=== PATIENT | female | born 1935 | race Caucasian/White ===

== ENCOUNTER 2016-05-24 07:19 | Observation (INO) | payer MEDICARE, MEDICAID ==
--- NOTE | 2016-05-22 20:52 | HP ---
PREOPERATIVE HISTORY AND PHYSICAL: DATE OF ADMISSION: 05/24/16 Patient is scheduled for same-day surgery with overnight extension for observation by Dr. Hallman on 05/24/16. DATE OF PREOPERATIVE HISTORY AND PHYSICAL EXAMINATION: 05/22/16. ATTENDING SURGEON: Dr. Yaima Hallman (dictated by Nikunj Cartagena NP). CHIEF COMPLAINT: Right breast cancer. HISTORY OF PRESENT ILLNESS: The patient is a 81-year-old female who noticed a lump in her right breast in late February or early March. She waited a couple of weeks and then saw Dr. Nieves and was referred to Dr. Garrett, who did fine needle aspiration of this right breast mass on 04/18/16. 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 She had a mammogram on 05/10/16 and there was a spiculated 1.5-cm mass corresponding to the palpable lesion in the upper inner quadrant of the right breast. She denies any breast pain or nipple discharge; she had her first menstrual period at age 17; she went through menopause at age 52; she is 5, para 5, and had her first child at age 20. She took control pills for more than 10 years and no other hormone replacement therapy. She has never had radiation to the chest for Hodgkin's lymphoma; she has never had a previous breast biopsy; she denies any family history of ovarian cancer. Her daughter in 2010 with breast cancer. She was diagnosed at age 43 [address] at age [address] Hallman has reviewed the above findings with the patient and has examined the patient and has discussed surgical treatment options with the patient and she has opted for right mastectomy with sentinel lymph node biopsy. Dr. Hallman discussed the nature of the surgical procedure, the relevant risks , benefits, and alternatives and today, I reviewed the typical overnight hospitalization, the use of a Raffi-Crenshaw drain, and the expected postoperative care and recovery. The patient has had a chance to ask questions and stated that she understands the information and is satisfied with the answers given to her questions. She will sign surgical consent on the day of surgery. 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 She has a history of plantar fasciitis, kidney stones, benign positional vertigo, status post tobacco use, osteoarthritis. MEDICATIONS: 1. Multivitamin daily. 2. Vitamin D3 1000 International Units daily. 3. Flaxseed oil supplement 1000 mg daily. 4. Fish oil supplement daily. ALLERGIES: No known drug allergies. No latex or food allergies. FAMILY HISTORY: Parents in their 90s without malignancies. Daughter in her late 40s or early 50s with breast cancer. No known anesthesia complications, bleeding tendencies, or clotting disorders in the family. SOCIAL HISTORY: She is . A friend named Delroy accompanied her to the appointment today. 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 She quit smoking in 1986 after smoking 1 pack per day for 25 years. REVIEW OF SYSTEMS: She denies any recent constitutional symptoms, her weight has been stable, her energy level has been good, she has a good appetite. She denies any fevers, sweats, chills, cough, or sore throat. She denies any history of coronary artery disease. She denies any shortness of breath, chest pain, or palpitations. She denies any history of deep vein thrombosis or pulmonary embolism. She denies any gastrointestinal complaints; she denies any change in bowel habits. She denies any previous anesthesia complications. She denies any bleeding tendencies and has never received a blood transfusion. She is status post transurethral resection of bladder tumor for urothelial carcinoma , noninvasive, in May 2015; she sees Dr. Cervantes routinely and states that she has had 2 subsequent negative cystoscopies in the office and no further hematuria. She denies any significant musculoskeletal complaints and denies any neurologic conditions or complaints. PHYSICAL EXAMINATION GENERAL SURVEY: The patient is a 81-year-old female who looks younger than her stated age, well developed, well nourished, in no acute distress. VITAL SIGNS: Height 67 inches, weight 134 pounds, body mass index 21, blood pressure 102/68, pulse 78 and regular, respiratory rate 16, temperature 98 tympanic. HEENT: Benign. NECK: Supple. No cervical lymphadenopathy. Thyroid gland feels mildly enlarged, but there are no palpable nodules. BACK: No CVA tenderness. LUNGS: Breath sounds bilaterally clear and equal. BREASTS: Right breast with palpable 1.5-cm mass at the 3 o'clock position, mobile. No overlying skin changes. No nipple discharge or other palpable masses in the right breast. Left breast is without discrete masses, nontender. No nipple discharge. Both nipples are everted. No axillary lymphadenopathy. No supraclavicular lymphadenopathy bilaterally. HEART: Regular rate and rhythm without murmurs or rubs. ABDOMEN: Active bowel sounds. Soft and nontender throughout without masses or organomegaly. EXTREMITIES: Warm without edema or skin ulcerations. NEUROLOGIC: Exam without focal deficits. Alert and oriented x3. Steady gait. SKIN: Warm, dry, intact. IMPRESSION: Right breast cancer. PLAN: Same-day surgery admission with overnight extension for observation on 05/24/16, to Dr. Hallman's service for right mastectomy and sentinel lymph node biopsy. NIKUNJ CARTAGENA NP CC: Dr. Hallman, [facility]; Dr. Nieves* [id number]/CPS #: [id number] [facility]
[~2016-05-24 07:19] MED LIST: Buffered Lidocaine 1% SYRIN* 3 ML/SYR SYRINGE INTRADERM ONE; Famotidine IV* 10 MG/ML 2 ML (20 mg) IV ONE; Famotidine IV* 10 MG/ML 2 ML (20 mg) ONE; Lidocaine 2.5%/Prilocain 2.5%* 5 GM TUBE ONE; Morphine INJ* 2 MG/ML 1 ML SYRINGE IV PRN; PROCHLORPERAZINE INJ 5 MG/ML 2 ML VIAL IV PRN; ceFAZolin 2 GM PREMIX(*) 2 GM/50 ML BAG IVPB ONE; oxyCODONE/Acetamin 5/325 MG* TAB PO PRN
--- NOTE | 2016-05-24 10:08 | RAD ---
INDICATION: Right breast carcinoma, sentinel node localization. Comparison: Comparison is made with prior mammograms from May 10, 2016. Technique: The benefits and risks of the procedure were explained to the patient. The patient consented to the exam. A timeout was performed before beginning the procedure. 0.32 mCi of technetium 99m filtered sulfur colloid were injected in a nery-areolar location. Four intradermal injections were made. The patient tolerated the procedure well without incident. Multiple images of the chest and right axilla were obtained in the frontal, oblique and lateral projections. FINDINGS: There was a single sentinel node present in the right axilla. This was marked and localized on the patient's skin. IMPRESSION: THERE IS A SINGLE SENTINEL NODE LOCALIZED WITHIN THE RIGHT AXILLA.
[2016-05-24] MEDS ORDERED: fentaNYL* 50 MCG/ML 2 ML VIAL (100 MCG VIAL) ONE ×2 (11:44→14:08)
[2016-05-24] MEDS ORDERED: KETAMINE HCL* 50 MG/ML 10 ML VIAL ONE (11:44)
[2016-05-24] MEDS ORDERED: Bupivacaine 0.25% SDV* 30 ML ONE (12:25)
[2016-05-24] MEDS ORDERED: Methylene Blue 1%* 10 ML VIAL ONE (12:25)
[2016-05-24] MEDS ORDERED: Propofol* 10 MG/ML 20 ML BTL IV PUSH ONE (13:17)
[2016-05-24] MEDS ORDERED: Ketorolac INJ* 30 MG/ML 1 ML VIAL ONE (13:17)
[2016-05-24] MEDS ORDERED: Dexamethasone IV* 4 MG/ML 1 ML (4 MG) ONE (13:17)
[2016-05-24] MEDS ORDERED: Ondansetron INJ* 2 MG/ML VIAL ONE (13:17)
[2016-05-24] MEDS ORDERED: Lidocaine 2% PF* 5 ML VIAL ONE (13:17)
[2016-05-24] MEDS ORDERED: Morphine INJ* 10 MG/ML 1 ML SYRINGE ONE ×2 (13:17→14:07)
[2016-05-24] MEDS ORDERED: EPHEDrine (Pressors)* 50 MG/ML VIAL ONE (13:32)
[2016-05-24] MEDS ORDERED: Glycopyrrolate IV* 0.2 MG/ML 1 ML VIAL ONE (13:32)
[2016-05-24] MEDS ORDERED: Acetaminophen TAB* 325 MG PO PRN (14:01)
[2016-05-24] MEDS ORDERED: HYDROmorphone* 1 MG/ML 1 ML SYR IV PRN (14:01)
[2016-05-24] MEDS ORDERED: Ondansetron INJ* 2 MG/ML VIAL IV PRN (14:01)
[2016-05-24] MEDS: fentaNYL* 50 MCG/ML 2 ML VIAL (100 MCG VIAL) IV PRN ×2 (14:08→14:20)
[2016-05-24] MEDS ORDERED: [UNRECOGNIZED DRUG - OTHER] BOTH EYES PRN (14:09)
[2016-05-24] MEDS ORDERED: PROCHLORPERAZINE INJ 5 MG/ML 2 ML VIAL ONE (14:47)
[2016-05-24] MEDS: oxyCODONE/Acetamin 5/325 MG* TAB PO PRN (19:17)
[2016-05-24] MEDS: Heparin VIAL(*) 5000 UNITS/ML VIAL (FIVE THOUSAND) SUBCUT SCH (21:34)
--- NOTE | 2016-05-25 04:12 | OP ---
CC: [facility]; [facility]; Sienna Nieves MD OPERATIVE REPORT: DATE OF OPERATION: 05/24/16 DATE OF : 39 SURGEON: Yaima Hallman MD DIE REPAIRER TRIMMER DIES: DOLORES Smith PRE-OP DIAGNOSIS: Right breast cancer. POST-OP DIAGNOSIS: Right breast cancer. OPERATIVE PROCEDURE: Right mastectomy and sentinel lymph node biopsy. INDICATIONS: Ms. Ferguson is a 81-year-old woman who presented to the office with a diagnosis of breast cancer prompting a plan for surgical intervention. She had, after discussion, decided for mastectom y and was prepared for surgery. On the morning of surgery, she underwent sentinel lymph node locali zation without difficulty. DESCRIPTION OF PROCEDURE: She was then brought to the operating room, placed on the OR table in sup ine position, and given general anesthesia. Right breast and axilla were prepped and draped in the usual sterile fashion. First step was to do the mastectomy. Here a curvilinear incision was made i n the superior breast and subcutaneous tissue was divided with electrocautery to create flaps medial ly to the sternum, superiorly to the clavicle and laterally to the latissimus dorsi muscle. Then an inferior incision was made and this encompassed the nipple areolar complex. Dissection was accomplis hed with electrocautery to create flaps medially to the sternum, inferiorly to the rectus muscle, an d laterally to the latissimus dorsi muscle. Once this was completed, the breast was elevated off th e chest wall using electrocautery. Once it was out of the chest, it was handed off as a specimen wi th the usual markings. Hemostasis was assured with electrocautery and once this was adequate, atten tion was turned to finding the axillary sentinel node. Almost immediately apparent was node that wa s radioactive. Its in situ counts were around 1260. It was removed using blunt and sharp dissectio n and clips to control small lymphatic and blood vessels that approached. The ex vivo counts were 1 200 and the remaining axillary bed counts were 8. At this point, closure was accomplished. It shou ld be mentioned that prior to removing the breast entirely from the chest wall, its approximate edilson esponding location on the chest wall was marked with clips. The wound was irrigated with saline. On ce it was ascertain that the hemostasis was adequate, closure was accomplished. This was done with 2-0 Polysorb in the subcutaneous layer as well as 3-0 Polysorb in the subcutaneous layer and the ski n was closed with 4-0 Polysorb in a subcuticular fashion. Prior to closing, a ESTEPHANIA drain was inserted through a stab wound in the anterior axillary line inferiorly. This was secured to the chest wall w ith 3-0 Surgipro. Once the incision was completely closed, Steri-Strips and a dry fluffy dressing w ere applied. All sponge and instrument counts were correct. The patient tolerated the procedure we ll and was transferred to recovery in a stable condition. Prior to placing the final dressing, loca l anesthetic was instilled into the wound through the ESTEPHANIA drain. The patient tolerated the procedure well and was transferred to Recovery in stable condition. [id number]/[facility] #: [id number]
[2016-05-25] MEDS: oxyCODONE/Acetamin 5/325 MG* TAB PO PRN (06:36)
[2016-05-25 07:48] VITALS: BP 103/55
--- NOTE | 2016-05-25 08:28 | PN ---
Progress Note - Progress Note Note: Surgery Ms. Ferguson has some pain in the right axilla that started this morning after she got up. Before that she had not had pain through the night. Vital Signs 05/24/16 05/24/16 05/24/16 14:05 14:08 14:10 Temperature 97.2 F Pulse Rate 93 97 Respiratory 18 12 14 Rate Blood Pressure 135/85 133/76 (mmHg) O2 Sat by Pulse 100 99 Oximetry 05/24/16 05/24/16 05/24/16 14:15 14:20 14:30 Temperature Pulse Rate 93 76 Respiratory 14 18 18 Rate Blood Pressure 124/75 127/93 (mmHg) O2 Sat by Pulse 96 98 Oximetry 05/24/16 05/24/16 05/24/16 14:45 15:00 16:00 Temperature 97.5 F 97.4 F Pulse Rate 75 79 71 Respiratory 12 18 16 Rate Blood Pressure 124/62 117/65 114/57 (mmHg) O2 Sat by Pulse 97 97 98 Oximetry 05/24/16 05/24/16 05/24/16 16:49 17:52 19:17 Temperature 97.4 F 97.4 F Pulse Rate 62 73 Respiratory 12 16 18 Rate Blood Pressure 107/56 110/64 (mmHg) O2 Sat by Pulse 100 100 Oximetry 05/24/16 05/24/16 05/24/16 19:37 21:17 21:39 Temperature 97.4 F Pulse Rate 75 Respiratory 18 16 18 Rate Blood Pressure 99/57 (mmHg) O2 Sat by Pulse 93 Oximetry 05/24/16 05/25/16 05/25/16 23:32 03:17 06:36 Temperature 97.6 F 97.6 F Pulse Rate 83 81 Respiratory 16 16 18 Rate Blood Pressure 97/55 93/52 (mmHg) O2 Sat by Pulse 96 96 Oximetry 05/25/16 07:35 Temperature 97.4 F Pulse Rate 72 Respiratory 18 Rate Blood Pressure 103/55 (mmHg) O2 Sat by Pulse 95 Oximetry Mastectomy site: clean and dry; flaps viable, though the lateral superior flap has subtle discoloration over an ~2cm area. ESTEPHANIA: serosanguinous drainage. Intake & Output 05/24/16 05/25/16 05/25/16 22:59 06:59 14:59 Intake Total 850 994 Output Total 420 765 Balance 430 229 Intake: IV Fluids 994 LR 994 Oral 850 Output: ESTEPHANIA #1 70 15 Urine 300 750 Estimated Blood Loss 50 Other: # Bowel Movements 0 A/P: POD#1 s/p right mastectomy and SLN bx. Doing well. Can go home and f/u as outpt. CLFoster
[2016-05-25] MEDS: Heparin VIAL(*) 5000 UNITS/ML VIAL (FIVE THOUSAND) SUBCUT SCH (08:52)
--- NOTE | 2016-05-26 05:16 | DS ---
DISCHARGE SUMMARY: DATE OF ADMISSION: 05/24/16 DATE OF DISCHARGE: 05/25/16 ADMISSION DIAGNOSIS: Breast cancer. DISCHARGE DIAGNOSIS: Breast cancer. PROCEDURES DURING HOSPITALIZATION: Include right mastectomy and sentinel lymph node biopsy done on the date of surgery. HOSPITAL COURSE: Please see admission history and physical for details and findings at the time of admission. She was admitted for postoperative management of her mastectomy including pain and nausea management and overnight recovered fairly well. She had a little bit of pain in the morning but this was managed easily with the dressing change and she was considered stable for discharge to home. She was discharged to home with instructions to follow up as an outpatient. [id number]/CPS #: [id number] MTDD
== END 2016-05-25 09:50 | disposition home or self-care (01) ==
LOC: SDS 07:19 → SSU 15:33
PROVIDERS: ADMIT Surgery; ATTEND Surgery
PROC: 07B50ZX Excision of Right Axillary Lymphatic, Open Approach, Diagnostic (ICD-10-PCS; 2016-05-24)
PROC: 0HTT0ZZ Resection of Right Breast, Open Approach (ICD-10-PCS; principal; 2016-05-24 12:15)
DX: C50.911 Malignant neoplasm of unspecified site of right female breast (principal); Z85.51 Personal history of malignant neoplasm of bladder; Z87.891 Personal history of nicotine dependence
CPT/HCPCS: 78195; 88307; 88341; 88342; 96372; 96374; 96375; A9270-GY; A9541; G0378; J0690; J0780; J1100; J1644; J1885; J2270; J2405; J2704; J3010

== ENCOUNTER 2016-07-27 12:42 | Emergency (ER) | payer MEDICARE, MEDICAID ==
[2016-07-27] MEDS ORDERED: DOXYcycline CAP(*) 100 MG PO ONE (14:13)
--- NOTE | 2016-07-27 14:13 | UC ---
Skin Complaint HPI - HPI Summary HPI Summary: tick removed a few hours ago on right elbow may have been attached for greater than 36 hours - History of Current Complaint Chief Complaint: UCSkin Time Seen by Provider: 07/27/16 14:10 Stated Complaint: TICK BITE Hx Obtained From: Patient ?: No Onset/Duration: Sudden Onset Skin Exposure Onset/Duration: Days Ago Timing: Constant Onset Severity: Mild Current Severity: Mild Pain Intensity: 2 Pain Scale Used: 0-10 Numeric Location: Discrete - right elbow Aggravating: Nothing Alleviating: Nothing Associated Signs & Symptoms: Positive: Negative Related History: Insect Bite/Sting - Allergy/Home Medications Allergies/Adverse Reactions: Allergies Allergy/AdvReac Type Severity Reaction Status Date / Time Midazolam [From Versed] Allergy Intermediate Dizziness Verified 07/27/16 14:12 Review of Systems Constitutional: Negative Skin: Other - tick attachement right elbow Eyes: Negative ENT: Negative Respiratory: Negative Cardiovascular: Negative Gastrointestinal: Negative Genitourinary: Negative Motor: Negative Neurovascular: Negative Musculoskeletal: Negative Neurological: Negative Psychological: Negative All Other Systems Reviewed And Are Negative: Yes PMH/Surg Hx/FS Hx/Imm Hx Previously Healthy: No Endocrine History Of: Denies: Diabetes, Thyroid Disease Cardiovascular History Of: Denies: Cardiac Disorders, Hypertension Respiratory History Of: Denies: COPD, Asthma GI/ History Of: Reports: Kidney Stones - X 1 IN THE 1970'S- NONE SINCE Denies: Ulcer Neurological History Of: Reports: Migraine - during menopause Cancer History Of: Reports: Breast Cancer - RIGHT, 2017 - Surgical History Surgical History: Yes Surgery Procedure, Year, and Place: COLONOSCOPY X 2. IVP. SPINAL WTH CHILDBIRTH-HAD A SPINAL HEADACHE. Right breast mastectomy - Family History Known Family History: Positive: None Family History: no reported cardiovascular issues in family lineage - Social History Alcohol Use: None Substance Use Type: None Smoking Status (MU): Former Smoker Type: Cigarettes Amount Used/How Often: < 1PPD X 30 YEARS Have You Smoked in the Last Year: No When Did the Patient Quit Smoking/Using Tobacco: 1985 - Immunization History Most Recent Influenza Vaccination: 2012 Most Recent Tetanus Shot: 2008 Most Recent Pneumonia Vaccination: 2012 Physical Exam Triage Information Reviewed: Yes Appearance: Well-Appearing, No Pain Distress, Well-Nourished Vital Signs Reviewed: Yes Eye Exam: Normal Eyes: Positive: Conjunctiva Clear ENT Exam: Normal ENT: Positive: Normal ENT inspection, Hearing grossly normal. Negative: Nasal congestion, Nasal drainage, Trismus, Muffled/hoarse voice Dental Exam: Normal Neck exam: Normal Neck: Positive: Supple, Nontender, No Lymphadenopathy Respiratory Exam: Normal Respiratory: Positive: Chest non-tender, No respiratory distress, No accessory muscle use Cardiovascular Exam: Normal Cardiovascular: Positive: RRR, Pulses Normal, Brisk Capillary Refill Musculoskeletal Exam: Normal Musculoskeletal: Positive: Strength Intact, ROM Intact, No Edema Neurological Exam: Normal Neurological: Positive: Alert, Muscle Tone Normal Psychological Exam: Normal Psychological: Positive: Normal Response To Family, Age Appropriate Behavior Skin Exam: Other Skin: Positive: Other - small irratated area on right elbow at site of tick bite Course/Dx - Course Course Of Treatment: soap and water wash / doxy. 200 mg times 1 follow with pcp - Differential Diagnoses - Skin Complaint Differential Diagnoses: Cellulitis, Impetigo, Systemic Illness, Tick Born Illness - Diagnoses Provider Diagnoses: Tick exposure with PEP for Lyme Discharge - Discharge Plan Condition: Stable Disposition: HOME Patient Education Materials: Doxycycline (By mouth), Tick Bite (ED) Referrals: Sienna Nieves MD [Primary Care Provider] - If Needed
[2016-07-27 14:15] VITALS: BP 128/76
== END 2016-07-27 14:24 | disposition home or self-care (01) ==
LOC: UCEAST 12:42
DX: S50.361A Insect bite (nonvenomous) of right elbow, initial encounter (principal); W57.XXXA Bitten or stung by nonvenomous insect and other nonvenomous arthropods, initial encounter; G43.909 Migraine, unspecified, not intractable, without status migrainosus; Z87.442 Personal history of urinary calculi; Z85.3 Personal history of malignant neoplasm of breast; Z90.11 Acquired absence of right breast and nipple; Z87.891 Personal history of nicotine dependence
CPT/HCPCS: 99212; A9270-GY; G0463

== ENCOUNTER 2016-09-23 22:02 | Emergency (ER) | payer MEDICARE, MEDICAID ==
[2016-09-24 00:13] VITALS: BP 143/83
[2016-09-24] MEDS ORDERED: Tobramycin 0.3% OPHTH.SOL* 5 ML BOT (regular eye drops) LEFT EYE ONE (00:42)
--- NOTE | 2016-10-08 15:11 | ED ---
Throat Pain/Nasal Congestion - HPI Summary HPI Summary: Patient presents to ED with CC of left eye redness and pain x 2 days. She notes to a small yellow dot in the center. That area is not painful. She is only having pain behind the eye. Denies blurry vision, double vision, pressure or burning. Denies other symptoms at this time. She has not been sick recently. - History of Current Complaint Chief Complaint: EDEyeProblem Time Seen by Provider: 09/24/16 00:23 Hx Obtained From: Patient Onset/Duration: Sudden Onset, Lasting Minutes - Epiglottits Risk Factors Epiglottis Risk Factors: Negative - Allergies/Home Medications Allergies/Adverse Reactions: Allergies Allergy/AdvReac Type Severity Reaction Status Date / Time Midazolam [From Versed] Allergy Intermediate Dizziness Verified 09/23/16 22:21 PMH/Surg Hx/FS Hx/Imm Hx Previously Healthy: Yes Endocrine/Hematology History: Denies: Hx Diabetes, Hx Thyroid Disease Cardiovascular History: Denies: Hx Hypertension Respiratory History: Denies: Hx Asthma, Hx Chronic Obstructive Pulmonary Disease (COPD) GI History: Reports: Hx Irritable Bowel - ??, Other GI Disorders - "INFECTIOUS COLITIS"-FALL 2013-NO PROBLEMS SINCE Denies: Hx Ulcer History: Reports: Hx Kidney Stones - X 1 IN THE 1969'S- NONE SINCE, Other Problems/Disorders - TURBT 05/30 Dr. Cervantes Musculoskeletal History: Reports: Hx Arthritis - osteoarthritis Sensory History: Reports: Hx Contacts or Glasses - glasses-READING Denies: Hx Hearing Aid Opthamlomology History: Reports: Hx Contacts or Glasses - glasses-READING Neurological History: Reports: Hx Migraine - during menopause, Other Neuro Impairments/Disorders - HEADACHES MOST EVERY MORNING- RELIEVED WHEN GETS OUT OF BED - Cancer History Cancer Type, Location and Year: Breast CA Hx Chemotherapy: No Hx Radiation Therapy: No - Surgical History Surgery Procedure, Year, and Place: COLONOSCOPY X 2. IVP. SPINAL WTH CHILDBIRTH-HAD A SPINAL HEADACHE. Right breast mastectomy Hx Anesthesia Reactions: Yes - SPINAL HEADACHE AFTER CHILD - Immunization History Hx Pertussis Vaccination: No Immunizations Up to Date: Unable to Obtain/Confirm Infectious Disease History: No Infectious Disease History: Denies: Hx Hepatitis, Hx Human Immunodeficiency Virus (HIV), History Other Infectious Disease, Traveled Outside the [place] in Last 30 Days - Family History Known Family History: Positive: None Family History: no reported cardiovascular issues in family lineage - Social History Occupation: Unemployed Lives: With Family Alcohol Use: None Hx Substance Use: No Substance Use Type: Reports: None Smoking Status (MU): Former Smoker Type: Cigarettes Amount Used/How Often: < 1PPD X 30 YEARS Have You Smoked in the Last Year: No Review of Systems Constitutional: Negative Positive: Erythema, Other - slight pain ENT: Negative Positive: Palpitations Gastrointestinal: Negative Positive: no symptoms reported, see HPI Musculoskeletal: Negative Neurological: Negative Psychological: Normal All Other Systems Reviewed And Are Negative: Yes Physical Exam Triage Information Reviewed: Yes Vital Signs On Initial Exam: Initial Vitals Temp Pulse Resp BP Pulse Ox 98.1 F 70 16 127/68 97 09/23/16 22:21 09/23/16 22:21 09/23/16 22:21 09/23/16 22:21 09/23/16 22:21 Vital Signs Reviewed: Yes Appearance: Positive: Well-Appearing, Well-Nourished Skin: Positive: Warm, Skin Color Reflects Adequate Perfusion Head/Face: Positive: Normal Head/Face Inspection Eyes: Positive: EOMI, ROSALINA, Conjunctiva Clear, Other: - small yellow area at 9oclock Neck: Positive: Supple, No Lymphadenopathy Respiratory/Lung Sounds: Positive: Clear to Auscultation, Breath Sounds Present Cardiovascular: Positive: Normal, RRR Musculoskeletal: Positive: Strength/ROM Intact Neurological: Positive: Speech Normal Psychiatric: Positive: Normal - [place] Coma Scale Coma Scale Total: 15 Diagnostics - Vital Signs Vital Signs Temp Pulse Resp BP Pulse Ox 09/24/16 00:13 98.1 F 75 16 143/83 96 09/23/16 22:21 98.1 F 70 16 127/68 97 - Laboratory Lab Statement: Any lab studies that have been ordered have been reviewed, and results considered in the medical decision making process. EENT Course/Dx - Course Course Of Treatment: small yellow area at 9oclock resembling pinguecula. patient has close follow up with eye doctor and will follow up. unable to give steroids and antibiotics are not warranted d/t no coexisting infection. Return precautions given. Patient understands and agrees with plan. Ok for discharge. - Differential Diagnoses Differential Diagnoses: Abrasion, Other - pterygium, FB - Diagnoses Provider Diagnoses: Pinguecula of left eye Discharge - Discharge Plan Condition: Stable Disposition: HOME Patient Education Materials: Pinguecula (ED) Referrals: Sienna Nieves MD [Primary Care Provider] - Additional Instructions: Follow up with eye MD. I think you have a pinguecula - these are benign and go away on their own. I have given you antibiotic drops if you have a co-existing conjunctivitis. Instill 1 to 2 drops into affected eye(s) every 6 hours for mild to moderate infections for 3 days Images - Images Eyes: 1 - small yellow area resembling pinguecula
== END 2016-09-24 00:51 | disposition home or self-care (01) ==
LOC: ED 22:02
DX: H11.152 Pinguecula, left eye (principal); Z87.442 Personal history of urinary calculi; Z85.3 Personal history of malignant neoplasm of breast; Z87.891 Personal history of nicotine dependence
CPT/HCPCS: 99282; A9270-GY

== ENCOUNTER 2017-07-30 07:53 | Emergency (ER) | payer MEDICARE, MEDICAID ==
[2017-07-30 08:04] VITALS: BP 117/68
--- NOTE | 2017-07-30 11:23 | UC ---
Soha Tidwell Gabriel, scribed for Jose Daniel Linder MD on 07/30/17 at 0819 . Bite Injury/Animal HPI - HPI Summary HPI Summary: This patient is a 82 year old F presenting to [facility] s/p tick bite. Pt found a tick on her waist line and attempted to remove it completely and would like it to be removed. Pt has a history of lyme disease and took 200mg of doxycycline this morning. I removed what was left on the tick from the left flank. Pt has no other complaints at this time. - History of Current Complaint Chief Complaint: UCSkin Stated Complaint: TICK BITE Time Seen by Provider: 07/30/17 07:56 Hx Obtained From: Patient Severity Currently: None Severity Initially: Mild Pain Intensity: 0 Pain Scale Used: 0-10 Numeric Onset/Duration: Still Present Type of Bite: Wild Animal Has Animal Been Immunized?: N/A Character: Puncture Associated Signs And Symptoms: Positive: Negative - fever Hx of Bite: Unprovoked - Allergies/Home Medications Allergies/Adverse Reactions: Allergies Allergy/AdvReac Type Severity Reaction Status Date / Time midazolam [From Versed] Allergy Dizziness Verified 07/30/17 08:04 PMH/Surg Hx/FS Hx/Imm Hx - Additional Past Medical History Additional PMH: lyme disease Cancer History: Breast Cancer - Surgical History Surgical History: Yes Surgery Procedure, Year, and Place: COLONOSCOPY X 2. IVP. SPINAL WTH [facility]ILDBIR[facility]-HAD A SPINAL HEADACHE. Right breast mastectomy - Family History Known Family History: Positive: None Negative: Cardiac Disease, Hypertension Family History: no reported cardiovascular issues in family lineage - Social History Alcohol Use: None Substance Use Type: None Smoking Status (MU): Former Smoker Type: Cigarettes Amount Used/How Often: < 1PPD X 30 YEARS Have You Smoked in the Last Year: No When Did the Patient Quit Smoking/Using Tobacco: 1985 - Immunization History Most Recent Influenza Vaccination: 2012 Most Recent Tetanus Shot: 2008 Most Recent Pneumonia Vaccination: 2012 Review of Systems Constitutional: Negative - fever Skin: Other - tick bite All Other Systems Reviewed And Are Negative: Yes Physical Exam - Summary Physical Exam Summary: VITAL SIGNS: Reviewed. GENERAL: Patient is a well-developed and nourished female who is lying comfortable in the stretcher. Patient is not in any acute respiratory distress. HEAD AND FACE: Normocephalic EYES: PERRLA, EOMI x 2. EARS: Hearing grossly intact. MOUTH: Oropharynx within normal limits. NECK: Supple, trachea is midline, no adenopathy, no JVD, no carotid bruit. CHEST: Symmetric, no tenderness at palpation LUNGS: Clear to auscultation bilaterally. No wheezing or crackles. CVS: Regular rate and rhythm, S1 and S2 present, no murmurs or gallops appreciated. ABDOMEN: Soft, non-tender. Bowel sounds are normal. No abdominal abnormal pulsations. EXTREMITIES: Full ROM in all major joints, no edema, no cyanosis or clubbing. NEURO: Alert and oriented x 3. No acute neurological deficits. Speech is normal and follows commands. SKIN: Dry and warm Triage Information Reviewed: Yes Vital Signs: Initial Vital Signs Temp 98.1 F 07/30/17 07:57 Pulse 85 07/30/17 07:57 Resp 18 07/30/17 07:57 BP 117/68 07/30/17 07:57 Pulse Ox 100 07/30/17 07:57 Vital Signs Reviewed: Yes Bite Injury Course/Dx - Course Course Of Treatment: I discussed all the findings with the patient. Patient was instructed to return to the urgent care or go to ER immediately if any of the symptoms return or worsens. Plan of care was discussed with the patient, and patient understands and agrees. All questions were answered to patient satisfaction. There were no further complaints or concerns. - Differential Dx/Diagnosis Provider Diagnoses: tick bite Discharge - Sign-Out/Discharge Documenting (check all that apply): Discharge/Admit/Transfer - Discharge Plan Condition: Stable Disposition: HOME Patient Education Materials: Tick Bite (ED) Referrals: Sienna Nieves MD [Primary Care Provider] - The documentation as recorded by the Soha walsh Gabriel accurately reflects the service I personally performed and the decisions made by me, Jose Daniel Linder MD.
== END 2017-07-30 08:22 | disposition home or self-care (01) ==
LOC: UCEAST 07:53
DX: S30.861A Insect bite (nonvenomous) of abdominal wall, initial encounter (principal); W57.XXXA Bitten or stung by nonvenomous insect and other nonvenomous arthropods, initial encounter; Y93.9 Activity, unspecified; Y92.9 Unspecified place or not applicable; Z85.3 Personal history of malignant neoplasm of breast; Z88.4 Allergy status to anesthetic agent; Z87.891 Personal history of nicotine dependence
CPT/HCPCS: 99211; G0463

== ENCOUNTER 2019-01-05 07:30 | Inpatient (IN) | payer MEDICARE, MEDICAID ==
--- NOTE | 2019-04-28 13:51 | HP ---
PREOPERATIVE HISTORY AND PHYSICAL: DATE OF ADMISSION/SURGERY: 05/11/19 DATE OF OFFICE VISIT: 04/28/19 ATTENDING SURGEON: Dr. Denis.* (DICTATED BY DOLORES GARZA) PROCEDURE: Left total hip replacement. CHIEF COMPLAINT: Left hip pain. HISTORY OF PRESENT ILLNESS: Ms. 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 She continued to have groin pain with activity especially with stairs and she has failed conservative measures and therefore elected to proceed with a left total hip replacement with Dr. Denis on 05/11/19. PAST MEDICAL HISTORY: Benign paroxysmal positional vertigo; breast cancer, treated with right mastectomy; bladder tumors, that were removed; and Lyme disease in 2017. PAST SURGICAL HISTORY: Right mastectomy, cystoscopies, transurethral resection of the bladder tumor in 2016, surgery for infectious colitis. The patient denies prior complication of anesthesia. MEDICATIONS: 1. Multivitamin 1 tab daily. 2. Flaxseed oil 1000 mg 1 daily. 3. Aleve 220 one tab 3 times a day as needed. ALLERGIES: No known drug allergies. FAMILY HISTORY: Positive for diabetes and her mom had an abdominal aneurysm. She denies family history of DVT or PE. SOCIAL HISTORY: She lives alone. She is former smoker. She quit in 1984. Prior to that she was smoking 1 pack per day for 30 years. She denies current alcohol consumption. She is a prior alcoholic but quit in 1978, has not had a drink since then. She denies illegal drug use. REVIEW OF SYSTEMS: A 14-point review of systems was reviewed with the patient, positive for current complaint, otherwise negative. Denies fevers, chills, chest pain, shortness of breath. Denies history of bleeding disorder. Denies history of DVT or PE. No history of hepatitis or HIV. Denies history of heart attack or stroke. No prior seizure disorders. PHYSICAL EXAMINATION GENERAL: An 84-year-old, well-developed, well-nourished female, in no acute distress. VITAL SIGNS: Height 66.75, weight 128, pulse 78, blood pressure 158/100, respiratory rate 16, BMI 20.3. HEENT: Normocephalic, atraumatic. PERRLA. Throat clear. NECK: Supple. PULMONARY: Lungs are clear to auscultation bilaterally. No wheezing, rhonchi, or rales. CARDIO: Regular rate and rhythm. S1, S2. No murmurs, gallops, or rubs. No edema. No bruits. ABDOMEN: Positive bowel sounds, soft and nontender. NEUROLOGIC: Alert and oriented x3. Cranial nerves grossly intact. MUSCULOSKELETAL: Left lower extremity: The skin is intact. No warmth or erythema. Nontender to palpation. She flexes the hip to 90 degrees, which causes groin pain, 40 degrees external rotation, 10 degrees internal rotation which causes pain. Able to perform straight leg raise with minimal discomfort. Mild pain with log roll. Pain with passive abduction. Calf soft and nontender, +5/5 strength to ankle dorsiflexion and plantarflexion. +2 DP pulse. Sensation intact to light touch distally. DIAGNOSTIC STUDIES: Multiview x-rays of the left hip revealed end-stage osteoarthritis. PLAN: The patient is scheduled to undergo a left total hip replacement with Dr. Denis on 05/11/19. Percocet will be used for postop pain management and she will follow up for 6 weeks postop to evaluate her progress. The risks and complications were reviewed with the patient and a signed form can be found in the chart. DOLORES GARZA [id number]/CPS #: [id number] MTDD
[2019-05-10] MEDS ORDERED: Buffered Lidocaine 1% SYRIN* 1 ML/SYRINGE INTRADERM ONE (10:58)
[2019-05-11] MEDS ORDERED: Tranexamic Acid 1,000 MG in NS 0.9% 50 ML* (outpatient use) IV SCH ×2
[2019-05-11] MEDS ORDERED: Famotidine IV* 10 MG/ML 2 ML (20 mg) IV ONE (06:00)
[2019-05-11] MEDS ORDERED: Lactated Ringers 1000 ML Bag* 1,000 ML IV SCH (06:00)
--- OUTSIDE RECORDS SUMMARY | 2019-05-11 09:14 | XMS REPORT | Continuity of Care Document ---
:1935 External Reference #:[id number] Author Name Mulugeta Denis M.D. 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 No Information Available Social History Type Date Description Comments Sex Unknown ETOH Use Denies alcohol use Tobacco Use Start: Unknown End: Patient is a former smoker Unknown Smoking Status Reviewed: 04/28/19 Patient is a former smoker Exercise Type/Frequency Exercises regularly Allergies, Adverse Reactions, Alerts Description No Known Drug Allergies Medications Active Medications SIG Qnty Indications Ordering Provider Date Multivitamin daily Unknown Flaxseed Oil 1 by mouth every Unknown 1000mg day Capsules Aleve 1 by mouth three Unknown 220mg Tablets times a day as needed Immunizations Description No Information Available Vital Signs Date Vital Result Comment 04/28/2019 10:30am Height 66.75 inches 5'6.75" Weight 128.50 lb Heart Rate 78 /min BP Systolic 158 mmHg BP Diastolic 100 mmHg Respiratory Rate 16 /min Pain Level 0 BMI (Body Mass Index) 20.3 kg/m2 12/23/2018 9:40am Height 66.75 inches 5'6.75" Weight 130.00 lb Heart Rate 83 /min BP Systolic 116 mmHg BP Diastolic 75 mmHg Body Temperature 96.6 F BMI (Body Mass Index) 20.5 kg/m2 Results Test Acquired Date Facility Test Result H/L Range Note CBC Auto 12/23/2018 [facility] White Blood 6.8 10^3/uL Normal 3.5-10.[address] [place] [address] [phone] Red Blood Count 4.17 10^6/uL Normal 3.70-4.87 Hemoglobin 13.1 g/dL Normal 12.0-16.0 Hematocrit 39 % Normal 35-47 Mean Corpuscular Volume 93 fL Normal 80-97 Mean Corpuscular Hemoglobin 32 pg High 27-31 Mean Corpuscular HGB Conc 34 g/dL Normal 31-36 Red Cell Distribution Width 14 % Normal 10-15 Platelet Count 220 10^3/uL Normal 150-450 Mean Platelet Volume 7.5 fL Normal 7.4-10.4 Abs Neutrophils 2.3 10^3/uL Normal 1.5-7.7 Abs Lymphocytes 3.7 10^3/uL Normal 1.0-4.8 Abs Monocytes 0.6 10^3/uL Normal 0-0.8 Abs Eosinophils 0.2 10^3/uL Normal 0-0.6 Abs Basophils 0.1 10^3/uL Normal 0-0.2 Abs Nucleated RBC 0.0 10^3/uL Granulocyte % 33.8 % Lymphocyte % 53.8 % Monocyte % 9.3 % Eosinophil % 2.3 % Basophil % 0.8 % Nucleated Red Blood Cells % 0.1 Inr/Protime 12/23/2018 [facility] Inr 0.97 Normal 0.82-1.[address] [place] [address] [phone] Laboratory test 12/23/2018 [facility] Partial 36.6 Normal 26.0 -38.0 finding [address] [facility] [place] [place] [address] Time PTT [phone] Comp Metabolic 12/23/2018 [facility] Sodium 140 mmol/L Normal 135-[address] [place] [address] [phone] Potassium 4.1 mmol/L Normal 3.5-5.0 Chloride 106 mmol/L Normal 101-111 Co2 Carbon Dioxide 28 mmol/L Normal 22-32 Anion Gap 6 mmol/L Normal 2-11 Glucose 82 mg/dL Normal 70-100 Blood Urea Nitrogen 17 mg/dL Normal 6-24 Creatinine 0.72 mg/dL Normal 0.51-0.95 BUN/Creatinine Ratio 23.6 High 8-20 Calcium 9.4 mg/dL Normal 8.6-10.3 Total Protein 6.4 g/dL Normal 6.4-8.9 Albumin 4.3 g/dL Normal 3.2-5.2 Globulin 2.1 g/dL Normal 2-4 Albumin/Globulin Ratio 2.0 Normal 1-3 Total Bilirubin 0.70 mg/dL Normal 0.2-1.0 Alkaline Phosphatase 79 U/L Normal 34-104 Alt 12 U/L Normal 7-52 Ast 19 U/L Normal 13-39 Egfr Non- 77.7 >60 Egfr 94.1 >60 2 Type & Screen 12/23/2018 [facility] Patient Blood Type A Positive [address] [place] [address] [phone] Antibody Screen NEGATIVE Urinalysis Profile 12/23/2018 [facility] Urine Color Yellow [address] [place] [address] [phone] Urine Appearance Cloudy Urine Specific [place] 1.008 Low 1.010-1.030 Urine pH 6.0 Normal 5-9 Urine Urobilinogen Negative Negative Urine Ketones Negative Negative Urine Protein Negative Negative Urine Leukocytes 3+ Abnormal Negative Urine Blood 1+ Abnormal Negative Urine Nitrite Negative Negative Urine Bilirubin Negative Negative Urine Glucose Negative Negative Urine White Blood Cell 3+(>20/hpf) Abnormal Absent Urine Red Blood Cell 1+(3-5/hpf) Abnormal Absent Urine Bacteria 1+ Abnormal Absent Urine Squamous Epithelial Cell Present Abnormal Absent Urine Culture And 12/23/2018 [facility] Urine Culture SEE RESULT [address] [place] [address] [phone] 1 Standard intensity warfarin therapeutic range: 2.0-3.0 High intensity warfarin therapeutic range: 2.5-3.5 2 Because ethnic data is not always readily available, this report includes an eGFR for both -Americans and non- Americans. The National Kidney Disease Education Program (NKDEP) does not endorse the use of the MDRD equation for patients that are not between the ages of 18 and 70, are , have extremes of body size, muscle mass, or nutritional status, or are non- or non-. According to the National Kidney Foundation, irrespective of diagnosis, the stage of the disease is based on the level of kidney function: Stage Description GFR(mL/min/1.73 m(2)) 1 Kidney damage with normal or decreased GFR 90 2 Kidney damage with mild decrease in GFR 60-89 3 Moderate decrease in GFR 30-59 4 Severe decrease in GFR 15-29 5 Kidney failure <15 (or dialysis) 3 SEE RESULT BELOW Name: AIDE EISENBERG : [address]: Mulugeta Denis MD Acct: [id number] Unit: [id number] AGE: 83 Location: [facility] Re12/23/18 SEX: F Status: REG REF SPEC: [id number] ELLE: 12/23/18 [facility] DR: Mulugeta Denis MD REQ: [id number] RECD: 12/23/18 STATUS: GARETH ROLAND DR: Sienna Nieves MD _ SOURCE: URINE SPDESC: ORDERED: Urine Culture Procedure Result Reported Site Urine Culture Final 12/24/18- 1202 ML No growth of clinically significant organisms * ML - Main Lab . END OF REPORT DEPARTMENT OF PATHOLOGY, [address] [place] [address] Mykel Kim M.D. Director [facility] # [id number] Procedures Date Code Description Status 12/23/2018 16293 EKG, Interpretation Only Completed 05/10/2016 [id number] Mammogram Completed Medical Devices Description No Information Available Encounters Description No Information Available Assessments Date Code Description Provider 04/28/2019 M16.12 Unilateral primary osteoarthritis, Mulugeta Denis M.D. left hip 01/05/2019 M16.12 Unilateral primary osteoarthritis, Mulugeta Denis M.D. left hip 12/23/2018 M16.12 Unilateral primary osteoarthritis, Bernabe Aponte M.D., [facility] , [facility] left hip 12/23/2018 M16.12 Unilateral primary osteoarthritis, Mulugeta Denis M.D. left hip Plan of Treatment Future Appointment(s):06/15/2019 10:45 am - Mulugeta Denis M.D. at [facility] at [id number]/11/2019 11:30 am - Mulugeta Denis M.D. at [facility] at [id number]/28/2019 - Mulugeta Denis M.D.M16.12 Unilateral primary osteoarthritis, left hipNew Xrays:Pelvis 1-2 VWS, Ordered: 04/28/19Follow up: Follow up: 4-6 weeks post op Functional Status Description No Information Available Mental Status Description No Information Available Referrals Description No Information Available
[2019-05-11] MEDS ORDERED: Famotidine TAB* 20 MG ONE (09:25)
[2019-05-11] MEDS ORDERED: Buffered Lidocaine 1% SYRIN* 1 ML/SYRINGE INTRADERM ONE (09:25)
[2019-05-11] MEDS ORDERED: ceFAZolin 2 GM in NS PREMIX(*) 2 GM/100 ML BAG IVPB ONE (09:26)
[2019-05-11] MEDS ORDERED: Famotidine IV* 10 MG/ML 2 ML (20 mg) ONE (09:26)
[2019-05-11] MEDS ORDERED: Midazolam* 1 MG/ML 5 ML VIAL (5 MG) ONE (11:05)
[2019-05-11] MEDS ORDERED: KETAMINE HCL* 50 MG/ML 10 ML VIAL ONE (11:47)
[2019-05-11] MEDS ORDERED: Propofol* 10 MG/ML 20 ML BTL ONE (11:58)
[2019-05-11] MEDS ORDERED: Ketorolac INJ* 30 MG/ML 1 ML VIAL ONE (11:58)
[2019-05-11] MEDS ORDERED: Ondansetron INJ* 2 MG/ML VIAL ONE (11:58)
[2019-05-11] MEDS ORDERED: DiMENhydriNATE IV* 50 MG/ML VIAL ONE (11:58)
[2019-05-11] MEDS ORDERED: Naloxone* 0.4 MG/ML 1 ML VIAL IV PRN (12:32)
[2019-05-11] MEDS ORDERED: Acetaminophen TAB* 325 MG PO PRN (12:32)
[2019-05-11] MEDS ORDERED: oxyCODONE TAB* 5 MG TAB PO PRN ×2 (12:32→13:44)
[2019-05-11] MEDS ORDERED: DiMENhydriNATE IV* 50 MG/ML VIAL IV PUSH PRN (12:32)
[2019-05-11] MEDS ORDERED: EPHEDrine (Pressors)* 50 MG/ML VIAL ONE (12:35)
[2019-05-11] MEDS ORDERED: HYDROmorphone INJ1* 1 MG/ML SYRINGE ONE (12:43)
[2019-05-11] MEDS ORDERED: Ondansetron ODT TAB* 4 MG PO PRN (13:44)
[2019-05-11] MEDS ORDERED: Temazepam CAP* 15 MG PO PRN ×2 (13:44→14:50)
[2019-05-11] MEDS ORDERED: diPHENhydraMINE PO* 25 MG PO PRN (13:44)
[2019-05-11] MEDS ORDERED: Morphine INJ* 2 MG/ML 1 ML SYRINGE (TWO MG - NEW SYRINGE VERSION) IV PRN (13:44)
[2019-05-11] MEDS ORDERED: traMADol TAB* 50 MG PO PRN (13:44)
[2019-05-11] MEDS ORDERED: Polyethylene Glycol 3350* 17 GM PACKET PO PRN (13:44)
[2019-05-11] MEDS ORDERED: diPHENhydraMINE IV* 50 MG/ML 1 ml VIAL (BENADRYL) IV PRN (13:44)
[2019-05-11] MEDS ORDERED: oxyCODONE/Acetamin 5/325 MG* TAB PO PRN ×2 (13:44)
[2019-05-11] MEDS ORDERED: Magnesium Hydroxide LIQ* 30 ML UDC PO PRN (13:44)
[2019-05-11] MEDS ORDERED: Cyclobenzaprine TAB* 10 MG PO PRN (13:44)
[2019-05-11] MEDS ORDERED: Ondansetron INJ* 2 MG/ML VIAL IV PRN (13:44)
[2019-05-11] MEDS ORDERED: Polyethyl Glycol/Propylene Gly OPHTH.SOLN BOTH EYES PRN (13:50)
[2019-05-11] MEDS: Lactated Ringers 1000 ML Bag* 1,000 ML IV SCH (14:30)
[2019-05-11] MEDS: Aspirin TAB* 325 MG PO SCH (17:42)
[2019-05-11] MEDS: ceFAZolin 1 GM ADVAN(*) 1 GM in NS 0.9% 50 ML* 50 ML IVPB SCH (19:52)
[2019-05-11] MEDS: Docusate CAP* 100 MG PO SCH (19:54)
[2019-05-11] MEDS: Acetaminophen TAB* 325 MG PO SCH (22:31)
[2019-05-12] MEDS: Lactated Ringers 1000 ML Bag* 1,000 ML IV SCH ×2 (00:46→10:57)
--- NOTE | 2019-05-12 02:16 | OP ---
CC: Dr. Nieves * DATE OF OPERATION: 05/11/19 - ROOM #350 DATE OF : 39 SURGICAL CARE: Left hip. SURGEON: Mulugeta Denis MD ASSISTANTS: DOLORES Marie, embroidery assistant; Shelia Allan, surgical training specialist. ANESTHESIOLOGIST: Dr. Cande Inman. ANESTHESIA: Spinal and IV sedation. Perioperative Ancef was utilized and 1 g of tranexamic acid was given intravenously at the start of the case. PRE-OP DIAGNOSIS: Severe arthritis of the left hip. POST-OP DIAGNOSIS: Severe arthritis of the left hip. OPERATIVE PROCEDURE: Left total hip replacement. COMPONENTS UTILIZED: Jose Continuum cup 50 mm outer diameter with cluster holes, one screw was utilized and the liner is an elevated liner located posteriorly for a 32 head poly. On the femoral side, a standard M/L taper size 10 stem with a +0, 32 mm cobalt-chrome head. BLOOD LOSS: 200 mL. REPLACEMENT: Crystalloid fluids. OPERATIVE INDICATION: Severe arthritis of the left hip. DESCRIPTION OF PROCEDURE: The patient was brought to the operating room and placed on the operating room table in the supine position. Following the administration of the spinal anesthetic in the sitting position, she was returned to the supine position. A Méndez catheter was inserted. The patient was placed in the right lateral position with a folded blanket under the downside of right greater trochanter. The upside pelvis was secured with hip positioner over the ASIS and the sacrum and the groin was carefully sealed off the downside leg, checked to see that there was no pressure on the peroneal nerve at the fibular head and then blankets were placed between the legs. The right hip was given a preliminary chlorhexidine prep and then the formal ChloraPrep from the hip to the foot. After prepping, draping, and sealing off, we did our universal protocol time-out confirming Aide Ferguson and a plan for left total hip replacement. We all agreed and we proceeded. The hip was approached with a slightly curving posterolateral skin incision going from the greater trochanter distally for an inch and a half and curving slightly posteriorly going proximally for 2-1/2 inches. The skin and subcu divided down to the deep fascia. Hemostasis was checked and achieved throughout the case utilizing electrocautery. The gluteus monse was splint and the Charnley retractor was inserted. The posterior border of the abductor musculature and the greater trochanter identified and the soft tissues were swept posteriorly. A blunt Hohmann retractor was placed under the gluteus medius, exposing the piriformis. The piriformis and conjoint tendon reached, released from the piriformis fossa insertions. Each was marked with a #2 Surgidac suture and then the capsulotomy was completed. The hip had clear straw colored synovial fluid. A careful posterior approach was done with careful hemostasis. The stitches in the tendons were also put into the underlying capsular flap and served as a retractor throughout the case. The gluteus minimus was also retracted anteriorly over the blunt Hohmann retractor. The hip was dislocated without difficulty. The femoral neck was marked with a neck cutting guide for the M/L taper and the neck was cut approximately a fingerbreadth proximal to the lesser trochanter. The head and neck removed. The head had some osteophyte on its periphery and no cartilage on the femoral head in the weightbearing area. On the acetabular side, there was a large osteophyte medially. The acetabular labrum was torn up anterior to posterior and it was all removed sharply and with double action rongeur. Retraction for the acetabulum sharp Hohmann's anteriorly and posteriorly, blunt Hohmann's superiorly and inferiorly. The acetabular soft tissues were removed and there was a medial osteophyte completely going over the fovea. This was excised. Reaming was then done 45 through 50 and at 50, we had nice bleeding subchondral and cancellous bone. A 50 Continuum cup was impacted into position in 45 degrees of abduction and 20 degrees of anteversion. A screw was placed superiorly and then an elevated liner was located posteriorly. We checked to see that the liner was snapped and tight. The acetabulum was packed and attention was turned to the femoral side. On the femoral side, we used the canal finder, trochanteric reamer. Broaching was done 5 through 10. At 10, we had a nice tight fit. We did a trial reduction with a [address] in a standard neck and a +0 head, which showed nice soft tissue tensions, hip extension of 0. There was a slight shock with pushing and pulling and no tendency towards levering with IR and ER in extension, flexion of 90 degrees was stable and hip allowed adduction and internal rotation approaching 30 to 40 degrees each prior to dislocation. The size 10 standard stem was impacted into position. The trunnion was cleaned and dried and a +0, 32 mm cobalt-chrome head was applied. The hip was reduced again and during the closure, we did careful hemostasis which was checked and achieved. We irrigated with saline. 2 drill holes were placed through the greater trochanter posteriorly superiorly for reattachment of the piriformis and the conjoint tendon. The fascia les closed with interrupted #1 Polysorb in [id number] fashion, the same of the fascia over the gluteus monse. Deep and superficial subcu closed with 2-0 Polysorb and the superficial subcu with the same and the skin was closed with mela. The skin was washed and dried and covered with Betadine-soaked release followed by sterile gauze, ABD pad, and then paper tape. The patient was returned to the recovery room in stable and satisfactory condition, having tolerated the procedure very well. [id number]/[facility] #: [id number] JITENDRA
[2019-05-12] MEDS: ceFAZolin 1 GM ADVAN(*) 1 GM in NS 0.9% 50 ML* 50 ML IVPB SCH ×2 (04:27→12:25)
[2019-05-12] MEDS: Acetaminophen TAB* 325 MG PO SCH ×2 (06:38→14:18)
--- NOTE | 2019-05-12 06:45 | PN ---
Progress Note - Progress Note Date of Service: 05/12/19 Note: POD#1 Labs are pending. Awake, alert, cooperative and breathing easily. She was disoriented earlier. Dressing is dry. Exercises done left hip and leg. She does a leg raise and moves her ankle up and down. X-ray after surgery left hip all satisfactory. Imp: Stable. Plans: Up with walker, handle her pain and desire to move about. Check labs.
[2019-05-12 07:28] LABS: Hematocrit 26 % (35-47); Mean Platelet Volume 7.1 fL (7.4-10.4); Platelet Count 159 10^3/uL (150-450)
[2019-05-12 07:51] LABS: BUN/Creatinine Ratio 18.8 (8-20); Calcium 8.2 mg/dL (8.6-10.3); EGFR African American 83.1 (>60); EGFR Non-African American 68.7 (>60); Potassium 3.7 mmol/L (3.5-5.0)
[2019-05-12] MEDS ORDERED: Vitamin THERAPEUTIC TAB PO SCH (09:00)
[2019-05-12] MEDS: Aspirin TAB* 325 MG PO SCH (09:33)
[2019-05-12] MEDS: Docusate CAP* 100 MG PO SCH (09:33)
--- NOTE | 2019-05-12 11:16 | PN ---
Progress Note - Progress Note Date of Service: 05/12/19 SOAP: Subjective: []Pt seen at bedside to discuss getting out of bed on her own. Patient states she is strong willed, not confused. She is aware that she is not supposed to get out of bed without staff supervision and is able to recite posterior hip precautions to me. She has broken hip precautions by crossing legs and gotten up unsupervised without any increase in pain, fall or injury. Denies CP, SOB, dizziness, nausea. Objective: []Gen: NAD, appears well, a&ox3 LLE: Hip dressing CDI, df/pf intact, DP2+, sensation intact to light touch distally Assessment: []POD 1 sp LTH Plan: []WBAT PT/OT Posterior hip precautions She understands she will be kept in the hospital until able to follow direction , if not following direction may need JOHN Son was present for our discussion and also in understanding. Will get repeat h&H this afternoon and tomorrow morning. BP soft, asympatomatic, encourage PO intake and monitor. Nursing to take manual BP if low and contact provider Likely DC home tomorrow Vital Signs Temp 99 F 05/12/19 08:53 Pulse 92 05/12/19 08:53 Resp 16 05/12/19 09:33 BP 98/48 05/12/19 08:53 Pulse Ox 97 05/12/19 08:53 Intake & Output 05/11/19 05/12/19 05/12/19 18:59 06:59 18:59 Intake Total 1800 2130 980 Output Total 750 950 Balance 1050 1180 980 Weight 130 lb Intake: IV Fluids 1800 980 980 LR 1800 980 980 IVPB 50 ABX - CEFAZOLIN 50 Oral 1100 Output: Méndez 500 950 Estimated Blood Loss 250 Laboratory Last Values Hgb 9.0 g/dL (12.0-16.0) L 05/12/19 06:57 Hct 26 % (35-47) L 05/12/19 06:57 Plt Count 159 10^3/uL (150-450) 05/12/19 06:57 MPV 7.1 fL (7.4-10.4) L 05/12/19 06:57 Sodium 138 mmol/L (135-145) 05/12/19 06:57 Potassium 3.7 mmol/L (3.5-5.0) 05/12/19 06:57 Chloride 106 mmol/L (101-111) 05/12/19 06:57 Carbon Dioxide 30 mmol/L (22-32) 05/12/19 06:57 Anion Gap 2 mmol/L (2-11) 05/12/19 06:57 BUN 15 mg/dL (6-24) 05/12/19 06:57 Creatinine 0.80 mg/dL (0.51-0.95) 05/12/19 06:57 Est GFR ( Amer) 83.1 (>60) 05/12/19 06:57 Est GFR (Non-Af Amer) 68.7 (>60) 05/12/19 06:57 BUN/Creatinine Ratio 18.8 (8-20) 05/12/19 06:57 Glucose 116 mg/dL (70-100) H 05/12/19 06:57 Calcium 8.2 mg/dL (8.6-10.3) L 05/12/19 06:57
[2019-05-12 13:18] LABS: Hematocrit 25 % (35-47); Hemoglobin 8.5 g/dL (12.0-16.0)
[2019-05-12 15:57] VITALS: BP 100/42
--- NOTE | 2019-05-12 17:04 | DS ---
Orthopedic Discharge Summary - Discharge Summary Date of Admission:05/11/19 Date of Discharge: 05/12/19 Date of Surgery: 05/11/19 Attending Orthopedic Provider: Dr Denis Pre-operative Diagnosis: Left hip osteoarthritis Operative Procedure: left total hip replacement Disposition of Patient:home Home care vs Outpatient services: homecare, lifetime starting 05/13 Condition of Patient: stable Pain medication RX at discharge: tramadol, zanaflex DVT prophylaxis RX at discharge: aspirin 325 mg daily History: SHON EISENBERG is a 84 year old F with years of increasingly severe left hip pain. Patient has failed conservative management and has elected to undergo a left total hip replacement Hospital Course: SHON was admitted to [facility] on 05/11/19. Patient underwent a left total hip arthroplasty without complication followed by a brief recovery in PACU and transfer to the Short Stay Surgical Unit in stable condition. Our hospitalist service, physical therapy and occupational therapy also participated in this patients care. Post-op day 1: patient was alert and in no acute distress. Dressing was clean, dry and intact. Operative extremity dorsiflexion and plantarflexion intact, sensation intact to light touch distally, DP2+. She had some difficulty following instruction int he morning, as she did not desire to follow instruction she was not confused. After reinforcing hip pracautions and that she cannot get up unattended, she did follow direction well. prior to DC: dressing was changed, incision was clean , dry and intact. She was advised to stay until tomorrow morning to monitor bp / h&h but she and her daughter both refused, stating she has 24 hour care at home from her children and has all supplies necessary. She understands to sit at the edge of the bed prior to standing to reduce fall risk and to call ortho office with concerns. They will have home nursing tomorrow and she is medically stable, A&Ox3. Physical therapy goals were met. Home Medications Medication Instructions Recorded Confirmed Type Multivitamin [Multivitamins] 1 cap PO QAM 06/14/13 05/11/19 History Flaxseed Oil 1,000 mg PO QPM 04/28/19 05/11/19 History Natural Tears 1 drop BOTH EYES Q3H PRN 04/28/19 05/11/19 History Acetaminophen TAB* [Tylenol TAB*] 975 mg PO Q8HR tab 05/12/19 Rx Aspirin TAB* [Aspirin 325 MG TAB*] 325 mg PO DAILY #30 tab 05/12/19 Rx Docusate CAP* [Colace Cap*] 100 mg PO BID PRN #50 cap 05/12/19 Rx Ferrous Sulfate 325 mg PO DAILY #30 tablet 05/12/19 Rx tiZANidine TAB* [Zanaflex TAB*] 2 mg PO TID #30 tab 05/12/19 Rx traMADol TAB* [Ultram*] 50 mg PO Q6HR PRN #56 tab MDD 8 05/12/19 Rx Discharge Instructions following Orthopedic Surgery: Activity: * Weight Bearing as tolerated * Continue physical therapy and occupational therapy exercises as shown * you have elected to have home physical therapy, continue therapy exercises at home. Hip replacements: Continue Hip Precautions- do not cross legs or bend greater than 90 degrees/squat, do not pigeon toe Wound care: * OK to shower on post-op day 3, no bathing, swimming, or submerging wound. * Use gentle soap, pat dry. Cover with gauze, KOURTNEY wrap or tape. * visiting home nurse will perform wound checks. Nurse will remove mela in 2 weeks. Call Orthopedic office for: * Increased drainage * Redness * Increased pain * Fever Go to ER with shortness of breath or chest pain. Diet: * Regular diet * Increase fluids and fiber to prevent constipation. * Continue to use stool softeners, call office if no bowel motion within 48 hours. Medications See Home Medication List in your packet for medications that you should take after discharge. Ferrous sulfate 325 mg once daily ( iron supplement). May cause constipation DVT Prophylaxis: Aspirin Dosin mg once a day. Increases bleeding tendency Pain Control: Tramadol 50 mg tabs: take 1 tab for moderate pain and 2 tabs for every pain every 6 hours as needed. Max 8 per day. Hold for sedation, wean off as soon as pain allows. zanaflex 2 mg tab 1 tab every 8 hours as needed for muscle spasm. Hold for sedation, wean off as soon as pain allows. Home nurse to take blood pressure and draw H&H tomorrow 05/13. Please change positions slowly and increase oral fluid intake. Antibiotics are required prior to any dental work. FOLLOW UP: Follow up with Dr. Bautista] Within 4 weeks, call for appointment Please call our office with any questions or concerns ([phone]) RX Nicanor Montes De [facility]
== END 2019-05-12 18:19 | disposition home health service (06) | DRG 470 ==
LOC: AA 05-11 09:09 → SSU 05-11 13:44
PROVIDERS: ADMIT Orthopaedic Surgery; ATTEND Orthopaedic Surgery
PROC: 0SRB02A Replacement of Left Hip Joint with Metal on Polyethylene Synthetic Substitute, Uncemented, Open Approach (ICD-10-PCS; principal; 2019-05-11 11:00)
DX: M16.12 Unilateral primary osteoarthritis, left hip (principal); M25.752 Osteophyte, left hip; J44.9 Chronic obstructive pulmonary disease, unspecified; E04.0 Nontoxic diffuse goiter; I95.9 Hypotension, unspecified; Z85.51 Personal history of malignant neoplasm of bladder; Z88.8 Allergy status to other drugs, medicaments and biological substances; Z87.891 Personal history of nicotine dependence; Z85.3 Personal history of malignant neoplasm of breast; Z90.11 Acquired absence of right breast and nipple; Z79.899 Other long term (current) drug therapy
CPT/HCPCS: 36415; 72170; 80048; 85014; 85018; 85049; 88304; 88311; 88341; 88342; 88360; A9270-GY; C1776; J0690; J1170; J1240; J1885; J2250; J2405; J2704

== ENCOUNTER 2019-02-17 07:08 | Emergency (ER) | payer MEDICARE, MEDICAID ==
--- OUTSIDE RECORDS SUMMARY | 2019-02-17 07:16 | XMS REPORT | Continuity of Care Document ---
:1935 External Reference #:[id number] Author Name Mulugeta Denis M.D. 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 Chewtabs daily sublingually Multivitamin daily Unknown Flaxseed Oil 1 by mouth every Unknown 1000mg day Capsules Ibuprofen 1 by mouth three Unknown 600mg times a day as Tablets needed Immunizations Description No Information Available Vital Signs Date Vital Result Comment 12/23/2018 9:40am Height 66.75 inches 5'6.75" Weight 130.00 lb Heart Rate 83 /min BP Systolic 116 mmHg BP Diastolic 75 mmHg Body Temperature 96.6 F BMI (Body Mass Index) 20.5 kg/m2 06/03/2018 1:31pm Height 67 inches 5'7" Weight 139.00 lb BP Systolic 118 mmHg BP Diastolic 62 mmHg Respiratory Rate 20 /min Body Temperature 98.8 F Pain Level 0 BMI (Body Mass Index) 21.8 kg/m2 Results Description No Information Available Procedures Date Code Description Status 05/10/2016 17551142 Mammogram Completed Medical Devices Description No Information Available Encounters Description No Information Available Assessments Date Code Description Provider 07/23/2018 M16.12 Unilateral primary osteoarthritis, left hip Mulugeta Denis M.D. 07/22/2018 M16.12 Unilateral primary osteoarthritis, left hip Mulugeta Denis M.D. Plan of Treatment Future Appointment(s):02/03/2019 10:45 am - Mulugeta Denis M.D. at [facility]01/05/2019 7:30 am - Mulugeta Denis M.D. at [facility] Functional Status Description No Information Available Mental Status Description No Information Available Referrals Description No Information Available
[2019-02-17 07:29] VITALS: BP 100/70
--- NOTE | 2019-02-17 07:52 | UC ---
Respiratory Complaint HPI - HPI Summary HPI Summary: 5 DAYS OF COUGH, CONGESTION, HEADACHE AND FATIGUE. NO DOCUMENTED FEVER. NO NAUSEA/VOMITING. FELT SHE WAS IMPROVING BUT THEN YESTERDAY SYMPTOMS WORSENED AGAIN. COUGH IS KEEPING HER UP AT NIGHT. - History of Current Complaint Chief Complaint: UCRespiratory Stated Complaint: COUGH HEADACHE Time Seen by Provider: 02/17/19 07:32 Hx Obtained From: Patient Onset/Duration: Gradual Onset, Lasting Days, Still Present Timing: Constant Severity Initially: Moderate Severity Currently: Moderate Pain Intensity: 5 Pain Scale Used: 0-10 Numeric Character: Cough: Nonproductive Aggravating Factors: Recumbent Position Alleviating Factors: Nothing Associated Signs And Symptoms: Positive: URI, Nasal Congestion. Negative: Dyspnea, Fever, Chills, Wheezing - Allergies/Home Medications Allergies/Adverse Reactions: Allergies Allergy/AdvReac Type Severity Reaction Status Date / Time midazolam [From Versed] Allergy Dizziness Verified 02/17/19 07:23 Home Medications: Home Medications Aspirin 1 tbsp PO ONCE PRN 02/17/19 [History Confirmed 02/17/19] Tears Natural 1 drop BOTH EYES DAILY 02/17/19 [History] PMH/Surg Hx/FS Hx/Imm Hx Cancer History: Breast Cancer - Surgical History Surgical History: Yes Surgery Procedure, Year, and Place: COLONOSCOPY X 2. IVP. SPINAL WTH [facility] A SPINAL HEADACHE. Right breast mastectomy - Family History Known Family History: Positive: None Negative: Cardiac Disease, Hypertension Family History: no reported cardiovascular issues in family lineage - Social History Alcohol Use: None Alcohol Amount: recovered alcoholic Substance Use Type: None Smoking Status (MU): Former Smoker Type: Cigarettes Amount Used/How Often: < 1PPD X 30 YEARS Have You Smoked in the Last Year: No When Did the Patient Quit Smoking/Using Tobacco: 1985 - Immunization History Most Recent Influenza Vaccination: 2012 Most Recent Tetanus Shot: 2008 Most Recent Pneumonia Vaccination: 2012 Review of Systems All Other Systems Reviewed And Are Negative: Yes Constitutional: Positive: Fatigue ENT: Positive: Sore Throat, Nasal Discharge Respiratory: Positive: Cough Cardiovascular: Positive: Negative Gastrointestinal: Positive: Negative Neurological: Positive: Headache Physical Exam Triage Information Reviewed: Yes Appearance: Well-Appearing, No Pain Distress, Well-Nourished Vital Signs: Initial Vital Signs Temp 99.1 F 02/17/19 07:16 Pulse 115 12/04/19 07:16 Resp 18 02/17/19 07:16 BP 100/70 02/17/19 07:16 Pulse Ox 96 02/17/19 07:16 Vital Signs Reviewed: Yes Eyes: Positive: Conjunctiva Clear ENT: Positive: Hearing grossly normal, Pharynx normal, TMs normal Neck: Positive: Supple Respiratory Exam: Normal Cardiovascular: Positive: Tachycardia Abdomen Description: Positive: Soft Musculoskeletal: Positive: No Edema Neurological: Positive: Alert Psychological: Positive: Age Appropriate Behavior Skin: Negative: Rashes Respiratory Course/Dx - Course Course Of Treatment: LIKELY VIRAL ETIOLOGY OF SYMPTOMS HOWEVER GIVEN THAT THE PATIENT IS FEELING WORSE AFTER INITIAL IMPROVEMENT WILL GO AHEAD AND COVER FOR SECONDARY BACTERIAL INFECTION WITH AN ANTIBIOTIC. PATIENT IS TACHYCARDIC ON EXAM TODAY. ADVISED TO MONITOR HER HEART RATE AND SEEK FOLLOW-UP IF SHE IS NOT COMING DOWN TO UNDER 100 BPM HER ILLNESS IMPROVES. TO THE ER IF SHE DEVELOPS CHEST PAIN, SHORTNESS OF BREATH, NAUSEA/VOMITING OR ANY OTHER CONCERNING SYMPTOMS. - Differential Dx/Diagnosis Provider Diagnosis: Acute bronchitis Discharge ED - Sign-Out/Discharge Documenting (check all that apply): Patient Departure All imaging exams completed and their final reports reviewed: No Studies - Discharge Plan Condition: Stable Disposition: HOME Prescriptions: Azithromyxin MRALO (NF) [Z-Marlo (Zithromax) 250 mg tabs #6] 2 tab PO .TODAY, THEN 1 DAILY #6 tab Patient Education Materials: Acute Bronchitis (ED) Referrals: Sienna Nieves MD [Primary Care Provider] - If Needed Additional Instructions: YOUR SYMPTOMS MAY BE VIRALLY MEDIATED BUT GIVEN THAT YOUR SYMPTOMS HAVE WORSENED AFTER INITIAL IMPROVMENT WE WILL COVER YOU WITH ANTIBIOTICS. IF YOU START THE MEDICINE BE SURE TO TAKE IT FOR THE FULL COURSE. REST, HYDRATE, OTC MEDS NEEDED. SEEK FOLLOW-UP WITH YOUR PCP IF YOU ARE NOT IMPROVING OVER THE NEXT 1-2 WEEKS. YOUR HEART RATE IS SLIGHTLY ELEVATED TODAY IN THE 110S. MONITOR YOUR PULSE AND ENSURE THAT IT COMES DOWN TO UNDER 100 BEATS PER MINUTE YOUR ILLNESS IMPROVES. SEEK FOLLOW-UP IF IT REMAINS ELEVATED OVER 100 BEATS PER MINUTE. GO TO THE ER WITHOUT FAIL IF YOU DEVELOP CHEST PAIN, SHORTNESS OF BREATH, DIZZINESS , NAUSEA/VOMITING OR ANY OTHER CONCERNING SYMPTOMS. - Billing Disposition and Condition Condition: STABLE Disposition: Home
== END 2019-02-17 08:05 | disposition home or self-care (01) ==
LOC: UCEAST 07:08
DX: J20.9 Acute bronchitis, unspecified (principal); R51 Headache; R09.81 Nasal congestion; Z88.8 Allergy status to other drugs, medicaments and biological substances; Z79.82 Long term (current) use of aspirin; Z85.3 Personal history of malignant neoplasm of breast; Z87.891 Personal history of nicotine dependence
CPT/HCPCS: 99212; G0463